=== PATIENT | female | born 1990 | race Asian ===

== ENCOUNTER 2024-02-22 08:22 | Emergency (ER) | payer OTHER ==
[~2024-02-22] VITALS: Ht 149.9 cm; Wt 62.6 kg
[2024-02-22 08:25] VITALS: BP_SYST 120; PULSE 82; RESP 18; TEMP 98.3; O2SAT 97
[2024-02-22 09:20] LABS: HEMOGLOBIN 9.7 g/dL (12.0-16.0); MEAN CORPUSCULAR HEMOGLOBIN 19 pg (27-31); MEAN CORPUSCULAR HGB CONC 30 % (32-36); MEAN CORPUSCULAR VOLUME 63 fL (79.0-98.0); PLATELET COUNT (AUTO) 552 K/uL (130-430); RED BLOOD CELL COUNT(AUTO) 5.27 MIL/uL (4.2-6.2); RED CELL DISTRIBUTION WIDTH 21.8 % (9.0-15.0); WHITE BLOOD COUNT (AUTO) 9.3 K/uL (4.8-10.8)
[2024-02-22 09:42] LABS: ANION GAP 9 (5-15); CALCIUM 8.9 mg/dL (8.4-11.0); CARBON DIOXIDE 23 mmol/L (23-29); CHLORIDE 103 mmol/L (98-107); CREATININE 1.25 mg/dL (0.55-1.30); GFR AFRICAN AMERICAN 63 mL/min (>90); GLUCOSE 190 mg/dL (74-106); POTASSIUM 4.4 mmol/L (3.5-5.1); SODIUM SERUM 135 mmol/L (136-145); UREA NITROGEN, BLOOD 17 mg/dL (8-21)
[2024-02-22 09:43] LABS: GFR NON AFRICAN-AMERICAN 52 mL/min (>90)
[2024-02-22 09:56] LABS: ANISOCYTOSIS 2+; BASOPHILS % (MANUAL) 0 % (0-2); EOSINOPHILS % (MANUAL) 5 % (0-7); HYPOCHROMASIA 2+; LYMPHOCYTES % (MANUAL) 20 % (20-46); MONOCYTES % (MANUAL) 4 % (0-11); PLATELET ESTIMATE INCREASED (ADEQUATE)
[2024-02-22] MEDS: ONDANSETRON HCL 4 MG/2 ML VIAL IVP ONE (11:18)
[2024-02-22] MEDS ORDERED: ALBE200T5 PO (11:53)
[2024-02-22 13:49] VITALS: BP_SYST 124; PULSE 79; RESP 18; TEMP 97; O2SAT 96
== END 2024-02-22 15:33 | disposition short-term general hospital (02) ==
LOC: SED 08:22
DX: I63.9 Cerebral infarction, unspecified (principal); R53.1 Weakness; R79.89 Other specified abnormal findings of blood chemistry; Z79.899 Other long term (current) drug therapy
CPT/HCPCS: 99285; 96374; 70450; 71045; 85027; 80048; 83880; 85007; 84484; 36415; J2405